=== PATIENT | male | born 1995 | race Caucasian/White ===

== ENCOUNTER 2020-04-15 10:30 | Emergency (ER) | payer OTHER, SELFPAY ==
[~2020-04-15] VITALS: Ht 180.3 cm; Wt 99.8 kg
[2020-04-15 10:37] VITALS: BP 141/87; Ht 180.3 cm; Wt 99.8 kg
== END 2020-04-15 11:15 | disposition home or self-care (01) ==
LOC: ED 10:30
DX: J03.90 Acute tonsillitis, unspecified (principal); F17.210 Nicotine dependence, cigarettes, uncomplicated
CPT/HCPCS: U0003